=== PATIENT | male | born 1985 | race Caucasian/White ===

== ENCOUNTER → 2017-10-08 | Outpatient (CLI) | payer OTHER ==
[~2017-10-08] MED LIST: DAYPRO600 M1 PO; FLEXERIL10 MG PO; MEDROL DOSEPAK4 MG PO; VICODIN 500 MG-1 TAB PO
[2017-10-08 16:48] LABS: HEMATOCRIT 42.6 % (42.0-52.0); HEMOGLOBIN 14.4 g/dl (14.0-18.0); MEAN CELL VOLUME 81.8 fl (80.0-94.0); MEAN CORPUSCULAR HGB 27.6 pg (27.0-31.0); MEAN CORPUSCULAR HGB CONC 33.8 g/dl (33.0-37.0); MEAN PLATELET VOLUME 9.4 fl (9.6-12.3); RED BLOOD COUNT 5.21 10*6/uL (4.50-5.90); RED CELL DISTRI WIDTH 12.7 % (0-14.5); WHITE BLOOD COUNT 6.2 10*3/uL (4.8-10.8)
[2017-10-08 17:07] LABS: ALBUMIN 4.6 gm/dl (3.1-4.5); ALKALINE PHOSPHATASE 69 U/L (45-117); BUN 14 mg/dl (7-24); CHLORIDE 103 mmol/L (98-107); CHOLESTEROL 183 mg/dL (<200); CREATININE 1.14 mg/dL (0.70-1.30); FREE T4 0.71 ng/dl (0.76-1.46); HDL CHOLESTEROL 46 mg/dl (40-60); LDL CHOLESTEROL 105 mg/dL (9-159); POTASSIUM 3.8 mmol/L (3.5-5.1); SGOT/AST 14 IU/L (3-35); SGPT/ALT 31 U/L (12-78); SODIUM 139 mmol/L (136-145); TOTAL PROTEIN 8.1 gm/dL (6.4-8.2); TRIGLYCERIDES 162 mg/dl (<150); VLDL CHOLESTEROL 32 mg/dL (6-40)
[2017-10-09 08:56] LABS: HEPATITIS B SURFACE AG Negative (Negative); HEPATITIS C VIRUS ANTIBODY <0.1 s/co (0.0-0.9)
== END | disposition home or self-care (01) ==
LOC: LAB 16:18
PROVIDERS: Family Medicine
DX: M79.1 Myalgia (principal); R53.83 Other fatigue; M54.2 Cervicalgia; E55.9 Vitamin D deficiency, unspecified; M25.50 Pain in unspecified joint; R20.0 Anesthesia of skin

== ENCOUNTER → 2018-04-02 | Outpatient (CLI) | payer BC | END | disposition home or self-care (01) | LOC: RAD 12:19 | DX: J11.1 Influenza due to unidentified influenza virus with other respiratory manifestations (principal); R53.83 Other fatigue; R42 Dizziness and giddiness; R05 Cough; R55 Syncope and collapse; R09.89 Other specified symptoms and signs involving the circulatory and respiratory systems; R06.02 Shortness of breath ==

== ENCOUNTER → 2020-02-25 | Outpatient (CLI) | payer SELFPAY | END | disposition home or self-care (01) | LOC: COVID19 11:06 | PROVIDERS: ATTEND Family Medicine | DX: U07.1 COVID-19 (principal) ==